=== PATIENT | female | born 1985 | race Caucasian/White ===

== ENCOUNTER 2018-03-04 16:29 | Emergency (ER) | payer MEDICAID ==
[~2018-03-04 16:29] MED LIST: HYDR-569 PO; ONDA4TAB12 PO
[2018-03-04 16:34] VITALS: BP 97/70
== END 2018-03-04 17:34 | disposition home or self-care (01) ==
LOC: ER 16:30
DX: F10.20 Alcohol dependence, uncomplicated (principal); J45.909 Unspecified asthma, uncomplicated; F15.90 Other stimulant use, unspecified, uncomplicated; Z88.0 Allergy status to penicillin; Z88.5 Allergy status to narcotic agent; Z79.899 Other long term (current) drug therapy
CPT/HCPCS: 99281

== ENCOUNTER 2018-04-19 17:08 | Inpatient (IN) | payer MEDICAID ==
[~2018-04-19] VITALS: Ht 160 cm; Wt 45.1 kg
[~2018-04-19 17:08] MED LIST changes: +CEPH500C5 PO; +CLIN150C8 PO; +IBUPROFEN PO; +MILK87.5; +SERT25TA5; +STOMACH PILL; +VIT A
[2018-04-19] MEDS ORDERED: normal saline 1000ML IV soln IV ONE (18:50)
[2018-04-19] MEDS ORDERED: vancomycin/NS 1 GM ADD-VANTAGE 250 ML IV ONE (18:50)
[2018-04-19] MEDS ORDERED: gentamicin 40 MG/1 ML inj IV SCH (18:50)
[2018-04-19] MEDS ORDERED: GENTAMICIN IV ONE (19:00)
[2018-04-19] MEDS ORDERED: NORMAL SALINE IV ONE (19:00)
[2018-04-19 19:14] LABS: BASOPHILS % (AUTO) 0.4 % (0-1); EOSINOPHILS # (AUTO) 0.2 X10'3 (0-0.9); EOSINOPHILS % (AUTO) 2.1 % (0-6); HEMATOCRIT 33.6 % (35.0-45.0); HEMOGLOBIN 11.4 g/dl (12.0-16.0); LYMPHOCYTES # (AUTO) 2.5 X10'3 (1.1-4.8); LYMPHOCYTES % (AUTO) 28.9 % (21-51); MEAN CORPUSCULAR HEMOGLOBIN 32.2 PG (27.0-31.0); MEAN CORPUSCULAR VOLUME 94.6 FL (78-98); MONOCYTES # (AUTO) 0.6 X10'3 (0-0.9); MONOCYTES % (AUTO) 7.4 % (2-12); NEUTROPHILS # (AUTO) 5.2 X10'3 (1.8-7.7); NEUTROPHILS % (AUTO) 61.2 % (42-75); PLATELET COUNT 289 X10'3 (140-440); RED BLOOD COUNT 3.55 X10'6 (4.20-5.60); RED CELL DISTRIBUTION WIDTH 14.9 % (11.5-14.5); WHITE BLOOD COUNT 8.5 X10'3 (4.5-11.0)
[2018-04-19 19:22] LABS: URINE HCG NEGATIVE (NEG)
[2018-04-19 19:25] LABS: PARTIAL THROMBOPLASTIN TIME 29 SECONDS (22-32)
[2018-04-19] MEDS ORDERED: ketorolac trometh. 30mg/ml inj. IV ONE (19:25)
[2018-04-19] MEDS ORDERED: HYDROcodone/acetaminophen 5mg/325mg tablet PO ONE (19:25)
[2018-04-19 19:30] LABS: CLARITY,URINE SLIGHTLY CLOUDY (Clear); COLOR,URINE YELLOW (Yellow); GLUCOSE, URINE NEGATIVE (Neg); KETONES,URINE NEGATIVE (Neg); LEUKOCYTE ESTERASE ,URINE NEGATIVE (Neg); NITRITES, URINE NEGATIVE (Neg); OCCULT BLOOD,URINE LARGE (Neg); PROTEIN,URINE TRACE mg/dl (Neg); UA COLLECTION TYPE CLN CATCH MIDSTREAM; UROBILINOGEN,URINE 0.2 E.U/dL (0.2-1.0)
[2018-04-19 19:30] LABS: ALANINE AMINOTRANSFERASE 19 U/L (12-78); ALBUMIN/GLOBULIN RATIO 0.7 (1.1-1.5); ALKALINE PHOSPHATASE 157 IU/L (46-116); ANION GAP 13 (8-16); ASPARTATE AMINO TRANSFERASE 22 U/L (10-37); BILIRUBIN,TOTAL 0.2 MG/DL (0.1-1.0); BLOOD UREA NITROGEN 15 MG/DL (7-18); BUN/CREATININE RATIO 27.8 (6.6-38.0); CALCIUM 8.6 MG/DL (8.5-10.1); CHLORIDE 103 MMOL/L (99-107); CREATININE 0.54 MG/DL (0.40-0.90); GLUCOSE 210 MG/DL (70-104); MAGNESIUM 1.9 MG/DL (1.5-2.4); POTASSIUM 3.1 MMOL/L (3.5-5.1); SODIUM 140 MMOL/L (135-145); TOTAL CARBON DIOXIDE 24.1 MMOL/L (24-32); TOTAL PROTEIN 7.2 G/DL (6.4-8.2); eGFR > 90 ML/MIN
[2018-04-19] MEDS ORDERED: iohexol 300mg/ml 100ml inj. ONE (19:33)
[2018-04-19] MEDS ORDERED: potassium Cl 20 mEq SR tablet PO STA (19:41)
[2018-04-19 19:44] LABS: BACTERIA,URINE FEW /HPF (Neg); MUCUS STRANDS MANY /LPF (Neg); RBC,URINE 50-100 /HPF (0-2); SQUAMOUS EPITHELIAL CELL,UR MODERATE /LPF (FEW); WBC,URINE 0-4 /HPF (0-4)
[2018-04-19] MEDS ORDERED: ondansetron/PF 4mg/2ml inj IV ONE (19:45)
[2018-04-19] MEDS ORDERED: magnesium 1gm/100ml D5W IVPB 100 ML IV PRN (20:00)
[2018-04-19] MEDS ORDERED: mag hydrox/Alum hydrox/simeth 30ml oral suspension PO PRN (20:00)
[2018-04-19] MEDS ORDERED: magnesium 4gm in 100ml NS 100 ML IV PRN (20:00)
[2018-04-19] MEDS ORDERED: haloperidol 5mg tablet PO PRN (20:00)
[2018-04-19] MEDS ORDERED: haloperidol lactate 5mg/ml inj IM PRN (20:00)
[2018-04-19] MEDS ORDERED: potassium Cl 20 mEq SR tablet PO PRN ×2 (20:00)
[2018-04-19] MEDS ORDERED: magnesium hydroxide 30ml (MOM) UD suspension PO PRN (20:00)
[2018-04-19] MEDS ORDERED: magnesium Cl slow-release 64mg tablet PO PRN (20:00)
[2018-04-19] MEDS ORDERED: potassium Cl 40MEQ/NS 500ml 500 ML IV PRN ×2 (20:00)
[2018-04-19] MEDS ORDERED: dextrose 50%-water 50ml dispensing syringe IV PRN (20:00)
[2018-04-19] MEDS ORDERED: vancomycin/NS 1 GM ADD-VANTAGE 250 ML IV SCH (20:00)
[2018-04-19] MEDS ORDERED: acetaminophen 325mg tablet PO PRN ×2 (20:00)
[2018-04-19] MEDS ORDERED: ondansetron/PF 4mg/2ml inj IV PRN (20:00)
[2018-04-19] MEDS ORDERED: LORazepam 2 mg/ml vial IV PRN (20:00)
[2018-04-19] MEDS ORDERED: HYDROcodone/acetaminophen 5mg/325mg tablet PO PRN (20:00)
[2018-04-19] MEDS: LORazepam 1 MG tablet PO PRN (20:32)
[2018-04-19] MEDS: gabapentin 300mg capsule PO SCH (20:32)
[2018-04-19] MEDS: normal saline 1000ml 1,000 ML IV SCH (20:33)
[2018-04-19] MEDS: enoxaparin 40mg/0.4ml syringe SUBCUT SCH (20:33)
[2018-04-19 20:47] LABS: URINE AMPHETAMINE SCREEN POSITIVE (Neg); URINE BARBITUATE SCREEN NEGATIVE (Neg); URINE BENZODIAZEPINES SCREEN NEGATIVE (Neg); URINE CANNABINOID SCREEN POSITIVE (Neg); URINE COCAINE SCREEN NEGATIVE (Neg); URINE METHADONE SCREEN NEGATIVE (Neg); URINE OPIATE SCREEN NEGATIVE (Neg); URINE PHENCYCLIDINE SCREEN NEGATIVE (Neg)
[2018-04-19] MEDS ORDERED: temazepam 15mg capsule PO PRN (21:00)
[2018-04-19] MEDS ORDERED: SERT25TA PO (21:23)
[2018-04-19 23:10] VITALS: BP 110/87
[2018-04-19] MEDS: cefepime 2g/NS 100ml ADVANTAGE 100 ML IV SCH (23:24)
[2018-04-20] MEDS ORDERED: cefepime 2gm inj IV SCH
[2018-04-20] MEDS: nicotine 14mg patch - 24hr TD SCH ×2 (03:24→07:31)
[2018-04-20 05:14] LABS: BASOPHILS % (AUTO) 0.5 % (0-1); EOSINOPHILS # (AUTO) 0.2 X10'3 (0-0.9); EOSINOPHILS % (AUTO) 2.5 % (0-6); HEMATOCRIT 30.9 % (35.0-45.0); HEMOGLOBIN 10.2 g/dl (12.0-16.0); LYMPHOCYTES # (AUTO) 2.2 X10'3 (1.1-4.8); LYMPHOCYTES % (AUTO) 30.9 % (21-51); MEAN CORPUSCULAR HEMOGLOBIN 31.8 PG (27.0-31.0); MEAN CORPUSCULAR HGB CONC 33.1 % (33.0-36.5); MEAN CORPUSCULAR VOLUME 96.1 FL (78-98); MONOCYTES # (AUTO) 0.5 X10'3 (0-0.9); MONOCYTES % (AUTO) 7.7 % (2-12); NEUTROPHILS # (AUTO) 4.2 X10'3 (1.8-7.7); NEUTROPHILS % (AUTO) 58.4 % (42-75); PLATELET COUNT 250 X10'3 (140-440); RED BLOOD COUNT 3.21 X10'6 (4.20-5.60); RED CELL DISTRIBUTION WIDTH 14.6 % (11.5-14.5); WHITE BLOOD COUNT 7.1 X10'3 (4.5-11.0)
[2018-04-20 05:41] LABS: ALBUMIN 2.4 G/DL (3.4-5.0); ANION GAP 10 (8-16); BLOOD UREA NITROGEN 12 MG/DL (7-18); BUN/CREATININE RATIO 25.5 (6.6-38.0); CALCIUM 7.9 MG/DL (8.5-10.1); CHLORIDE 106 MMOL/L (99-107); CREATININE 0.47 MG/DL (0.40-0.90); GLUCOSE 120 MG/DL (70-104); MAGNESIUM 1.6 MG/DL (1.5-2.4); POTASSIUM 3.4 MMOL/L (3.5-5.1); SODIUM 139 MMOL/L (135-145); TOTAL CARBON DIOXIDE 23.3 MMOL/L (24-32); eGFR > 90 ML/MIN
[2018-04-20] MEDS: normal saline 1000ml 1,000 ML IV SCH ×3 (06:22→19:29)
[2018-04-20] MEDS: HYDROcodone/acetaminophen 10/325mg tab PO PRN ×4 (06:22→23:48)
[2018-04-20] MEDS: cefepime 2g/NS 100ml ADVANTAGE 100 ML IV SCH ×2 (07:28→14:52)
[2018-04-20] MEDS: gabapentin 300mg capsule PO SCH ×3 (07:29→21:21)
[2018-04-20] MEDS: enoxaparin 40mg/0.4ml syringe SUBCUT SCH (07:30)
[2018-04-20] MEDS: thiamine 100mg tablet PO SCH (07:30)
[2018-04-20] MEDS: folic acid 1mg tablet PO SCH (07:30)
[2018-04-20] MEDS: VANCOMYCIN 750MG IV in NS 250 ML IV SCH ×3 (07:31→23:56)
[2018-04-20 08:00] VITALS: BP 142/107
[2018-04-20] MEDS ORDERED: VANCOMYCIN 750MG IV in NS 250 ML IV SCH (08:00)
[2018-04-20] MEDS ORDERED: nicotine 14mg patch - 24hr TD SCH (08:00)
[2018-04-20] MEDS ORDERED: K and/or MAG REPLACEMENT MC SCH (08:00)
[2018-04-20] MEDS ORDERED: OMEP20TA23 PO (11:10)
[2018-04-20 12:00] VITALS: BP 146/106
[2018-04-20] MEDS: LORazepam 1 MG tablet PO PRN ×3 (14:52→23:48)
[2018-04-20] MEDS ORDERED: ipratropium/albuterol 3ml nebule NEB PRN (16:15)
[2018-04-20 18:30] VITALS: BP 183/116
[2018-04-20] MEDS: lactobacillus rhamnosus 10,000 MMU CELLS/CAPSULE PO SCH (19:19)
[2018-04-21] VITALS: BP 157/109
[2018-04-21] MEDS: cefepime 2g/NS 100ml ADVANTAGE 100 ML IV SCH ×2 (01:41→08:21)
[2018-04-21] MEDS: normal saline 1000ml 1,000 ML IV SCH ×2 (02:00→03:26)
[2018-04-21] MEDS: HYDROcodone/acetaminophen 10/325mg tab PO PRN (03:25)
[2018-04-21] MEDS: LORazepam 1 MG tablet PO PRN ×2 (03:40→08:22)
[2018-04-21] MEDS ORDERED: VANCOMYCIN LEVEL IV ONE (06:30)
[2018-04-21 07:00] VITALS: BP 143/98
[2018-04-21] MEDS: VANCOMYCIN 750MG IV in NS 250 ML IV SCH (08:16)
[2018-04-21] MEDS: thiamine 100mg tablet PO SCH (08:22)
[2018-04-21] MEDS: folic acid 1mg tablet PO SCH (08:22)
[2018-04-21] MEDS: enoxaparin 40mg/0.4ml syringe SUBCUT SCH (08:22)
[2018-04-21] MEDS: gabapentin 300mg capsule PO SCH (08:22)
[2018-04-21] MEDS: lactobacillus rhamnosus 10,000 MMU CELLS/CAPSULE PO SCH (08:22)
[2018-04-21] MEDS: nicotine 14mg patch - 24hr TD SCH (08:23)
[2018-04-21 08:37] LABS: BASOPHILS % (AUTO) 0.6 % (0-1); EOSINOPHILS # (AUTO) 0.2 X10'3 (0-0.9); EOSINOPHILS % (AUTO) 2.6 % (0-6); HEMATOCRIT 32.4 % (35.0-45.0); HEMOGLOBIN 11.1 g/dl (12.0-16.0); LYMPHOCYTES # (AUTO) 2.3 X10'3 (1.1-4.8); LYMPHOCYTES % (AUTO) 31.8 % (21-51); MEAN CORPUSCULAR HEMOGLOBIN 32.5 PG (27.0-31.0); MEAN CORPUSCULAR HGB CONC 34.2 % (33.0-36.5); MEAN CORPUSCULAR VOLUME 95.2 FL (78-98); MEAN PLATELET VOLUME 8.1 FL (7.4-10.4); MONOCYTES # (AUTO) 0.4 X10'3 (0-0.9); MONOCYTES % (AUTO) 5.4 % (2-12); NEUTROPHILS # (AUTO) 4.3 X10'3 (1.8-7.7); NEUTROPHILS % (AUTO) 59.6 % (42-75); PLATELET COUNT 231 X10'3 (140-440); RED BLOOD COUNT 3.41 X10'6 (4.20-5.60); RED CELL DISTRIBUTION WIDTH 14.6 % (11.5-14.5); WHITE BLOOD COUNT 7.2 X10'3 (4.5-11.0)
[2018-04-21 08:42] LABS: ALBUMIN 2.5 G/DL (3.4-5.0); ANION GAP 5 (8-16); BLOOD UREA NITROGEN 6 MG/DL (7-18); BUN/CREATININE RATIO 14.3 (6.6-38.0); CALCIUM 8.1 MG/DL (8.5-10.1); CHLORIDE 103 MMOL/L (99-107); CREATININE 0.42 MG/DL (0.40-0.90); GLUCOSE 136 MG/DL (70-104); MAGNESIUM 1.5 MG/DL (1.5-2.4); SODIUM 136 MMOL/L (135-145); VANCOMYCIN,TROUGH 7.8 UG/ML (6.0-14.0); eGFR > 90 ML/MIN
[2018-04-21 08:55] LABS: POTASSIUM 3.6 MMOL/L (3.5-5.1)
[2018-04-21] MEDS ORDERED: CLIN-5 PO (10:46)
[2018-04-21] MEDS ORDERED: HYDR-569 PO (10:46)
[2018-04-21 11:00] VITALS: BP 135/96
[2018-04-21] MEDS ORDERED: vancomycin inj 1,250 MG in normal saline 250ml IV soln 250 ML IV SCH (15:00)
[2018-04-22] MEDS ORDERED: VANCOMYCIN LEVEL IV ONE (14:30)
== END 2018-04-21 13:55 | disposition home or self-care (01) | DRG 383 ==
LOC: ER 17:10 → ED HOLD 20:00 → SUR 3N 22:56
PROVIDERS: ADMIT Hospitalist; ATTEND Internal Medicine
DX: L03.116 Cellulitis of left lower limb (principal); K86.1 Other chronic pancreatitis; F32.9 Major depressive disorder, single episode, unspecified; F10.10 Alcohol abuse, uncomplicated; F12.90 Cannabis use, unspecified, uncomplicated; F15.10 Other stimulant abuse, uncomplicated; J44.9 Chronic obstructive pulmonary disease, unspecified; Z82.0 Family history of epilepsy and other diseases of the nervous system; Z98.891 History of uterine scar from previous surgery; Z82.5 Family history of asthma and other chronic lower respiratory diseases; Z88.0 Allergy status to penicillin; Z88.5 Allergy status to narcotic agent
CPT/HCPCS: 36415; 71045; 73701; 80048; 80053; 80202; 80305; 81001; 81025; 82948; 83605; 83735; 84145; 85025; 85610; 85730; 87040; 87070; 93005; 94760; 96365; 96366; 96368; 99285; A6257; J0692; J1580; J1650; J1885; J2060; J2405; J3370; J7030; Q9967

== ENCOUNTER 2018-04-23 12:57 | Emergency (ER) | payer MEDICAID ==
[~2018-04-23] VITALS: Ht 162.6 cm; Wt 50.0 kg
[~2018-04-23 12:57] MED LIST changes: -CEPH500C5 PO; +CLIN-5 PO; -CLIN150C8 PO; +OMEP20TA23 PO; -STOMACH PILL; -VIT A
[2018-04-23 13:37] LABS: BASOPHILS # (AUTO) 0.1 X10'3 (0-0.2); BASOPHILS % (AUTO) 0.6 % (0-1); EOSINOPHILS # (AUTO) 0.1 X10'3 (0-0.9); EOSINOPHILS % (AUTO) 1.4 % (0-6); HEMATOCRIT 38.7 % (35.0-45.0); HEMOGLOBIN 13.3 g/dl (12.0-16.0); LYMPHOCYTES # (AUTO) 2.2 X10'3 (1.1-4.8); LYMPHOCYTES % (AUTO) 22.2 % (21-51); MEAN CORPUSCULAR HEMOGLOBIN 32.4 PG (27.0-31.0); MEAN CORPUSCULAR HGB CONC 34.3 % (33.0-36.5); MEAN CORPUSCULAR VOLUME 94.5 FL (78-98); MEAN PLATELET VOLUME 8.1 FL (7.4-10.4); MONOCYTES # (AUTO) 0.4 X10'3 (0-0.9); MONOCYTES % (AUTO) 3.7 % (2-12); NEUTROPHILS % (AUTO) 72.1 % (42-75); PLATELET COUNT 322 X10'3 (140-440); RED CELL DISTRIBUTION WIDTH 14.8 % (11.5-14.5); WHITE BLOOD COUNT 9.7 X10'3 (4.5-11.0)
[2018-04-23] MEDS ORDERED: diphenhydrAMINE 50 mg/ml inj IV ONE (13:40)
[2018-04-23] MEDS ORDERED: metoclopramide 5 mg/ml inj IV ONE (13:40)
[2018-04-23] MEDS ORDERED: normal saline 1000ML IV soln IVB ONE ×2 (13:40)
[2018-04-23] MEDS ORDERED: LORazepam 2 mg/ml vial IV ONE (13:40)
[2018-04-23 14:07] LABS: URINE HCG NEGATIVE (NEG)
[2018-04-23 14:08] LABS: CLARITY,URINE CLOUDY (Clear); COLOR,URINE YELLOW (Yellow); GLUCOSE, URINE NEGATIVE (Neg); KETONES,URINE NEGATIVE (Neg); LEUKOCYTE ESTERASE ,URINE NEGATIVE (Neg); NITRITES, URINE NEGATIVE (Neg); OCCULT BLOOD,URINE NEGATIVE (Neg); PROTEIN,URINE NEGATIVE (Neg); UROBILINOGEN,URINE 0.2 E.U/dL (0.2-1.0)
[2018-04-23 14:10] LABS: UA COLLECTION TYPE CLN CATCH MIDSTREAM
[2018-04-23 14:13] LABS: MUCUS STRANDS MODERATE /LPF (Neg); SQUAMOUS EPITHELIAL CELL,UR MODERATE /LPF (FEW)
[2018-04-23 14:14] LABS: PROTHROMBIN TIME 10.8 SECONDS (9.0-12.0)
[2018-04-23 14:14] LABS: BACTERIA,URINE 1+ /HPF (Neg); RBC,URINE 0-2 /HPF (0-2); WBC,URINE 0-4 /HPF (0-4)
[2018-04-23 14:19] LABS: ALANINE AMINOTRANSFERASE 31 U/L (12-78); ALBUMIN 3.3 G/DL (3.4-5.0); ALBUMIN/GLOBULIN RATIO 0.7 (1.1-1.5); ALKALINE PHOSPHATASE 164 IU/L (46-116); AMYLASE 160 U/L (25-115); ANION GAP 6 (8-16); ASPARTATE AMINO TRANSFERASE 24 U/L (10-37); BILIRUBIN,TOTAL 0.3 MG/DL (0.1-1.0); BLOOD UREA NITROGEN 7 MG/DL (7-18); BUN/CREATININE RATIO 12.7 (6.6-38.0); CALCIUM 9.3 MG/DL (8.5-10.1); CHLORIDE 94 MMOL/L (99-107); CREATININE 0.55 MG/DL (0.40-0.90); GLUCOSE 115 MG/DL (70-104); LIPASE 375 U/L (73-393); POTASSIUM 3.6 MMOL/L (3.5-5.1); SODIUM 135 MMOL/L (135-145); TOTAL CARBON DIOXIDE 34.8 MMOL/L (24-32); TOTAL PROTEIN 7.8 G/DL (6.4-8.2); eGFR > 90 ML/MIN
[2018-04-23] MEDS ORDERED: ONDA4TAB12 PO (15:05)
[2018-04-23 15:42] VITALS: BP 153/112
== END 2018-04-23 15:43 | disposition home or self-care (01) ==
LOC: ER 12:57
DX: R10.13 Epigastric pain (principal); E86.0 Dehydration; J45.909 Unspecified asthma, uncomplicated; K85.90 Acute pancreatitis without necrosis or infection, unspecified; R50.9 Fever, unspecified; F12.90 Cannabis use, unspecified, uncomplicated; F15.90 Other stimulant use, unspecified, uncomplicated; F17.210 Nicotine dependence, cigarettes, uncomplicated; Z98.51 Tubal ligation status; Z98.890 Other specified postprocedural states; Z88.0 Allergy status to penicillin; Z88.5 Allergy status to narcotic agent; Z79.2 Long term (current) use of antibiotics; Z79.899 Other long term (current) drug therapy
CPT/HCPCS: 36415; 80053; 81001; 81025; 82150; 83690; 85025; 85610; 96361; 96374; 96375; 99284; J1200; J2060; J2765; J7030

== ENCOUNTER 2018-05-07 02:27 | Emergency (ER) | payer MEDICAID ==
[~2018-05-07] VITALS: Ht 160 cm; Wt 37.0 kg
[2018-05-07 02:31] VITALS: BP 126/88
== END 2018-05-07 02:50 | disposition left against medical advice (07) ==
LOC: ER 02:28
DX: L02.31 Cutaneous abscess of buttock (principal); Z53.21 Procedure and treatment not carried out due to patient leaving prior to being seen by health care provider

== ENCOUNTER 2018-07-09 06:50 | Day surgery (SDC) | payer MEDICAID ==
[~2018-07-09] VITALS: Ht 160 cm; Wt 48.8 kg
[2018-07-09] VITALS (14 sets, daily range): BP systolic 126–144; BP diastolic 82–99
[~2018-07-09 06:50] MED LIST changes: +HYDR-4383 PO; -HYDR-569 PO
[2018-07-09] MEDS ORDERED: oxyCODONE IR 5mg (immed. release) tablet PO PRN (07:20)
[2018-07-09] MEDS ORDERED: normal saline 1000ml 1,000 ML IV PRN (07:20)
[2018-07-09 07:54] LABS: BASOPHILS % (AUTO) 0.4 % (0-1); EOSINOPHILS # (AUTO) 0.1 X10'3 (0-0.9); EOSINOPHILS % (AUTO) 1.7 % (0-6); LYMPHOCYTES % (AUTO) 23.8 % (21-51); MEAN CORPUSCULAR HEMOGLOBIN 29.3 PG (27.0-31.0); MEAN CORPUSCULAR HGB CONC 33.4 % (33.0-36.5); MEAN CORPUSCULAR VOLUME 87.8 FL (78-98); MEAN PLATELET VOLUME 8.4 FL (7.4-10.4); MONOCYTES # (AUTO) 0.5 X10'3 (0-0.9); MONOCYTES % (AUTO) 6.2 % (2-12); NEUTROPHILS # (AUTO) 5.7 X10'3 (1.8-7.7); NEUTROPHILS % (AUTO) 67.9 % (42-75); PRE OP HEMATOCRIT 32.5 % (35.0-45.0); PRE OP PLATELET COUNT 204 X10'3 (140-440); RED BLOOD COUNT 3.71 X10'6 (4.20-5.60)
[2018-07-09] MEDS ORDERED: OMEP20TA23 PO (07:54)
[2018-07-09] MEDS ORDERED: ONDA4TAB9 SL (07:54)
[2018-07-09] MEDS ORDERED: THI100T PO (07:54)
[2018-07-09] MEDS ORDERED: FOLI1TAB16 PO (07:54)
[2018-07-09] MEDS ORDERED: PANC1CAP (07:54)
[2018-07-09 08:00] LABS: PRE OP HEMOGLOBIN 10.9 g/dL (12.0-16.0)
[2018-07-09 08:03] LABS: ANION GAP 11 (8-16); BLOOD UREA NITROGEN 9 MG/DL (7-18); BUN/CREATININE RATIO 23.1 (6.6-38.0); CALCIUM 8.1 MG/DL (8.5-10.1); CHLORIDE 99 MMOL/L (99-107); CREATININE 0.39 MG/DL (0.40-0.90); GLUCOSE 124 MG/DL (70-104); POTASSIUM 3.3 MMOL/L (3.5-5.1); SODIUM 136 MMOL/L (135-145); TOTAL CARBON DIOXIDE 26.1 MMOL/L (24-32); eGFR > 90 ML/MIN
[2018-07-09] MEDS ORDERED: fentaNYL/PF 50MCG/1 ML 2ML syringe ONE (09:14)
[2018-07-09] MEDS ORDERED: LIDOcaine 1%/PF 5ML 10 MG/ML VIAL ONE (09:14)
[2018-07-09] MEDS ORDERED: HYDROcodone/acetaminophen 5mg/325mg tablet PO PRN (10:50)
== END 2018-07-09 12:30 | disposition home or self-care (01) ==
LOC: SSTAY O 06:50
PROVIDERS: ATTEND Radiology Vascular & Interventional Radiology
DX: K74.0 Hepatic fibrosis (principal); K73.9 Chronic hepatitis, unspecified; K75.9 Inflammatory liver disease, unspecified; J45.909 Unspecified asthma, uncomplicated; K86.1 Other chronic pancreatitis; F17.210 Nicotine dependence, cigarettes, uncomplicated; Z88.0 Allergy status to penicillin; Z88.6 Allergy status to analgesic agent; Z79.899 Other long term (current) drug therapy; Z98.51 Tubal ligation status; Z98.890 Other specified postprocedural states
CPT/HCPCS: 36415; 47000; 77012; 80048; 85025; 85610; 87070; J2001; J3010; J7030

== ENCOUNTER 2018-10-24 23:04 | Emergency (ER) | payer MEDICAID ==
[~2018-10-24] VITALS: Ht 160 cm; Wt 48.5 kg
[~2018-10-24 23:04] MED LIST changes: -CLIN-5 PO; +FOLI1TAB16 PO; -HYDR-4383 PO; -IBUPROFEN PO; -MILK87.5; -ONDA4TAB12 PO; +ONDA4TAB9 SL; +PANC1CAP; +THI100T PO
[2018-10-24 23:13] VITALS: BP 139/93
[2018-10-25] MEDS ORDERED: sulfamethoxazole/trimethoprim DS (800/160mg) tablet PO ONE (00:35)
[2018-10-25 01:07] LABS: URINE HCG NEGATIVE (NEG)
[2018-10-25] MEDS ORDERED: SULF1TAB49 PO (02:03)
[2018-10-25] MEDS ORDERED: HYDROcodone/acetaminophen 5mg/325mg tablet PO ONE (02:05)
== END 2018-10-25 04:02 | disposition home or self-care (01) ==
LOC: ER 23:05
DX: K13.0 Diseases of lips (principal); R19.00 Intra-abdominal and pelvic swelling, mass and lump, unspecified site; J45.909 Unspecified asthma, uncomplicated; F12.90 Cannabis use, unspecified, uncomplicated; F15.90 Other stimulant use, unspecified, uncomplicated; Z98.51 Tubal ligation status; Z98.890 Other specified postprocedural states; Z88.0 Allergy status to penicillin; Z79.2 Long term (current) use of antibiotics; Z88.5 Allergy status to narcotic agent; Z79.899 Other long term (current) drug therapy
CPT/HCPCS: 74176; 81025; 99284

== ENCOUNTER 2019-01-30 13:24 | Emergency (ER) | payer MEDICAID ==
[~2019-01-30] VITALS: Ht 160 cm; Wt 43.8 kg
[2019-01-30 14:58] LABS: CLARITY,URINE CLEAR (Clear); COLOR,URINE STRAW (Yellow); GLUCOSE, URINE >=1000 mg/dl (Neg); KETONES,URINE NEGATIVE (Neg); LEUKOCYTE ESTERASE ,URINE NEGATIVE (Neg); NITRITES, URINE NEGATIVE (Neg); OCCULT BLOOD,URINE MODERATE (Neg); PH,URINE 5.5 (4.8-8.0); PROTEIN,URINE NEGATIVE (Neg); UROBILINOGEN,URINE 0.2 E.U/dL (0.2-1.0)
[2019-01-30 15:00] LABS: BASOPHILS % (AUTO) 0.4 % (0-1); EOSINOPHILS % (AUTO) 0.2 % (0-6); LYMPHOCYTES % (AUTO) 25.6 % (21-51); MEAN CORPUSCULAR HGB CONC 33.2 g/dL (33.0-36.5); MEAN CORPUSCULAR VOLUME 96.4 FL (78-98); MONOCYTES # (AUTO) 0.5 X10'3 (0-0.9); MONOCYTES % (AUTO) 6.4 % (2-12); NEUTROPHILS # (AUTO) 5.2 X10'3 (1.8-7.7); NEUTROPHILS % (AUTO) 67.4 % (42-75); PLATELET COUNT 275 X10'3 (140-440); RED BLOOD COUNT 4.05 X10'6 (4.20-5.60); RED CELL DISTRIBUTION WIDTH 14.5 % (11.5-14.5); WHITE BLOOD COUNT 7.7 X10'3 (4.5-11.0)
[2019-01-30 15:01] LABS: UA COLLECTION TYPE CLN CATCH MIDSTREAM
[2019-01-30 15:10] LABS: BACTERIA,URINE NONE SEEN /HPF (Neg); SQUAMOUS EPITHELIAL CELL,UR FEW /LPF (FEW); WBC,URINE NONE SEEN /HPF (0-4)
[2019-01-30] MEDS ORDERED: normal saline 1000ML IV soln IVB ONE ×2 (15:10→15:35)
[2019-01-30 15:18] LABS: ANION GAP 11 (8-16); BLOOD UREA NITROGEN 6 MG/DL (7-18); BUN/CREATININE RATIO 8.3 (6.6-38.0); CHLORIDE 93 MMOL/L (99-107); CREATININE 0.72 MG/DL (0.40-0.90); POTASSIUM 3.6 MMOL/L (3.5-5.1); SODIUM 128 MMOL/L (135-145); TOTAL CARBON DIOXIDE 24.4 MMOL/L (24-32)
[2019-01-30 15:19] LABS: ALANINE AMINOTRANSFERASE 97 U/L (12-78); ALBUMIN 2.9 G/DL (3.4-5.0); ALBUMIN/GLOBULIN RATIO 0.8 (1.1-1.5); ALKALINE PHOSPHATASE 189 IU/L (46-116); AMYLASE 44 U/L (25-115); ASPARTATE AMINO TRANSFERASE 93 U/L (10-37); BILIRUBIN,TOTAL 0.3 MG/DL (0.1-1.0); CALCIUM 8.4 MG/DL (8.5-10.1); LIPASE 98 U/L (73-393); TOTAL PROTEIN 6.7 G/DL (6.4-8.2); eGFR > 90 ML/MIN
[2019-01-30 15:27] LABS: GLUCOSE 603 MG/DL (70-104)
[2019-01-30] MEDS ORDERED: insulin regular, human 10 units/0.1 ml syringe IV ONE (15:35)
[2019-01-30 15:46] LABS: ETHANOL 0.135 GM/DL (0.0-0.010)
[2019-01-30] MEDS ORDERED: pantoprazole 40 MG vial IV ONE (15:55)
[2019-01-30] MEDS ORDERED: proCHLORperazine 10 MG/2 ml inj IV ONE (15:55)
[2019-01-30] MEDS ORDERED: ketorolac tromethamine 15mg/ml inj. IV ONE (15:55)
[2019-01-30] MEDS ORDERED: diphenhydrAMINE 50 mg/ml inj IV ONE (15:55)
[2019-01-30] MEDS ORDERED: ONDA4TAB6 PO (17:35)
[2019-01-30 18:15] VITALS: BP 136/69
== END 2019-01-30 18:18 | disposition home or self-care (01) ==
LOC: ER 13:25
DX: F10.129 Alcohol abuse with intoxication, unspecified (principal); G89.29 Other chronic pain; R10.12 Left upper quadrant pain; F15.10 Other stimulant abuse, uncomplicated; J45.909 Unspecified asthma, uncomplicated; F12.90 Cannabis use, unspecified, uncomplicated; Z88.0 Allergy status to penicillin; Z88.5 Allergy status to narcotic agent; Z79.899 Other long term (current) drug therapy; Y90.9 Presence of alcohol in blood, level not specified
CPT/HCPCS: 36415; 80053; 80320; 81001; 82150; 82948; 83690; 85025; 85610; 93005; 96361; 96374; 96375; 99284; C9113; J0780; J1200; J1815; J1885; J7030

== ENCOUNTER 2019-02-17 15:02 | Emergency (ER) | payer MEDICAID ==
[~2019-02-17] VITALS: Ht 160 cm; Wt 38.6 kg
[~2019-02-17 15:02] MED LIST changes: +ESOMEPRAZOLE 40 MG VIAL IV ONE; +ONDA4TAB6 PO
--- NOTE | 2019-02-17 15:15 | NUR ---
[id number] ON ADMISSION
[2019-02-17] MEDS ORDERED: metoclopramide 5 mg/ml inj IV ONE (15:30)
[2019-02-17] MEDS ORDERED: normal saline 1000ML IV soln IVB ONE ×2 (15:30→21:10)
[2019-02-17] MEDS ORDERED: diphenhydrAMINE 50 mg/ml inj IV ONE (15:30)
[2019-02-17 15:58] LABS: BASOPHILS % (AUTO) 0.2 % (0-1); EOSINOPHILS % (AUTO) 0.2 % (0-6); HEMATOCRIT 34.2 % (35.0-45.0); HEMOGLOBIN 11.8 g/dl (12.0-16.0); LYMPHOCYTES % (AUTO) 15.7 % (21-51); MEAN CORPUSCULAR HEMOGLOBIN 32.7 PG (27.0-31.0); MEAN CORPUSCULAR HGB CONC 34.4 g/dL (33.0-36.5); MEAN CORPUSCULAR VOLUME 94.9 FL (78-98); MEAN PLATELET VOLUME 7.7 FL (7.4-10.4); MONOCYTES # (AUTO) 0.6 X10'3 (0-0.9); MONOCYTES % (AUTO) 4.9 % (2-12); NEUTROPHILS # (AUTO) 10.1 X10'3 (1.8-7.7); PLATELET COUNT 342 X10'3 (140-440); RED BLOOD COUNT 3.61 X10'6 (4.20-5.60); RED CELL DISTRIBUTION WIDTH 13.7 % (11.5-14.5); WHITE BLOOD COUNT 12.8 X10'3 (4.5-11.0)
[2019-02-17 16:05] LABS: ALANINE AMINOTRANSFERASE 28 U/L (12-78); ALBUMIN 2.7 G/DL (3.4-5.0); ALBUMIN/GLOBULIN RATIO 0.6 (1.1-1.5); ALKALINE PHOSPHATASE 150 IU/L (46-116); ANION GAP 19 (8-16); ASPARTATE AMINO TRANSFERASE 26 U/L (10-37); BILIRUBIN,TOTAL 0.3 MG/DL (0.1-1.0); BLOOD UREA NITROGEN 4 MG/DL (7-18); BUN/CREATININE RATIO 9.3 (6.6-38.0); CALCIUM 8.6 MG/DL (8.5-10.1); CHLORIDE 94 MMOL/L (99-107); CREATININE 0.43 MG/DL (0.40-0.90); ETHANOL 0.135 GM/DL (0.0-0.010); GLUCOSE 335 MG/DL (70-104); LIPASE 104 U/L (73-393); SODIUM 132 MMOL/L (135-145); TOTAL CARBON DIOXIDE 19.1 MMOL/L (24-32); TOTAL PROTEIN 7.2 G/DL (6.4-8.2); eGFR > 90 ML/MIN
[2019-02-17] MEDS ORDERED: magnesium 2GM in 50ml NS 50 ML IV ONE (16:10)
[2019-02-17] MEDS ORDERED: potassium Cl 20 mEq SR tablet PO ONE (16:10)
[2019-02-17] MEDS ORDERED: potassium Cl 10 mEq/100mL bag IV ONE ×2 (16:10→16:40)
[2019-02-17] MEDS ORDERED: normal saline 1000ml 1,000 ML IV ONE (16:30)
[2019-02-17] MEDS ORDERED: thiamine 100mg/ml 2ml inj. IV ONE (16:40)
[2019-02-17] MEDS: ondansetron/PF 4mg/2ml inj IV ONE ×2 (16:40→18:05)
[2019-02-17] MEDS ORDERED: pantoprazole 40 MG vial IV ONE (16:40)
[2019-02-17 18:02] LABS: CLARITY,URINE CLEAR (Clear); COLOR,URINE YELLOW (Yellow); GLUCOSE, URINE >=1000 mg/dl (Neg); KETONES,URINE >=80 mg/dl (Neg); LEUKOCYTE ESTERASE ,URINE NEGATIVE (Neg); NITRITES, URINE NEGATIVE (Neg); OCCULT BLOOD,URINE SMALL (Neg); PROTEIN,URINE NEGATIVE (Neg); UROBILINOGEN,URINE 0.2 E.U/dL (0.2-1.0)
[2019-02-17 18:03] LABS: URINE HCG NEGATIVE (NEG)
[2019-02-17 18:08] LABS: UA COLLECTION TYPE CLN CATCH MIDSTREAM
[2019-02-17 18:09] LABS: BACTERIA,URINE NONE SEEN /HPF (Neg); SQUAMOUS EPITHELIAL CELL,UR NONE SEEN /LPF (FEW); WBC,URINE NONE SEEN /HPF (0-4)
[2019-02-17] MEDS ORDERED: potassium Cl 20 mEq SR tablet PO STA (18:21)
--- NOTE | 2019-02-17 18:41 | NUR ---
pt resting in bed pt stated that she is feeling lot better,iv potassium is infusing as per md orders,vitals stable ,denies any concern.
--- NOTE | 2019-02-17 18:51 | NUR ---
Patient resting comfortably in bed and speaking to someone on the phone. Patient reports some improvement of her symptoms. Patient updated on POC.
--- NOTE | 2019-02-17 20:24 | NUR ---
Patient is sleeping comfortably. Waiting for repeat on CMP.
[2019-02-17 20:52] LABS: ALANINE AMINOTRANSFERASE 27 U/L (12-78); ALBUMIN 2.4 G/DL (3.4-5.0); ALBUMIN/GLOBULIN RATIO 0.6 (1.1-1.5); ALKALINE PHOSPHATASE 138 IU/L (46-116); ANION GAP 19 (8-16); BILIRUBIN,TOTAL 0.2 MG/DL (0.1-1.0); BLOOD UREA NITROGEN 4 MG/DL (7-18); BUN/CREATININE RATIO 8.7 (6.6-38.0); CALCIUM 7.6 MG/DL (8.5-10.1); CHLORIDE 97 MMOL/L (99-107); CREATININE 0.46 MG/DL (0.40-0.90); GLUCOSE 316 MG/DL (70-104); POTASSIUM 4.1 MMOL/L (3.5-5.1); SODIUM 132 MMOL/L (135-145); TOTAL CARBON DIOXIDE 16.1 MMOL/L (24-32); TOTAL PROTEIN 6.5 G/DL (6.4-8.2); eGFR > 90 ML/MIN
[2019-02-17] MEDS ORDERED: insulin regular, human 10 units/0.1 ml syringe IV ONE (21:05)
[2019-02-17 21:08] LABS: ASPARTATE AMINO TRANSFERASE 38 U/L (10-37)
[2019-02-17] MEDS ORDERED: sucralfate 1gm/10ml UD suspension PO ONE (21:15)
[2019-02-17] MEDS ORDERED: POTA20TA19 PO (21:54)
[2019-02-17 22:26] LABS: ABG BASE EXCESS -6.1 mmol/L (-2.0-3.0); ABG HCO3 17.1 mmol/L (22.0-26.0); ABG OXYGEN SATURATION 94.7 % (95-98); ABG PCO2 (T) 27.4 mmHg (32.0-45.0); ABG PH (T) 7.414 (7.350-7.450); ABG PO2 (T) 73.2 mmHg (83-108); ALLEN'S TEST Positive; FCOHb 0.6 % (0.5-1.5); FMetHb 0.2 % (0.3-1.12); FO2Hb 93.9 % (94-100); PATIENT TEMPERATURE 36.8; TOTAL HEMOGLOBIN 12.3 G/dl (12.0-16.0)
[2019-02-17 22:48] VITALS: BP 125/76
== END 2019-02-17 23:05 | disposition home or self-care (01) ==
LOC: ER 15:04
DX: E11.65 Type 2 diabetes mellitus with hyperglycemia (principal); E87.6 Hypokalemia; R10.84 Generalized abdominal pain; J45.909 Unspecified asthma, uncomplicated; F12.90 Cannabis use, unspecified, uncomplicated; F15.90 Other stimulant use, unspecified, uncomplicated; Z98.890 Other specified postprocedural states; Z98.51 Tubal ligation status; Z88.0 Allergy status to penicillin; Z88.5 Allergy status to narcotic agent; Z79.899 Other long term (current) drug therapy
CPT/HCPCS: 36415; 36600; 80053; 80320; 81001; 81025; 82803; 82948; 83690; 85018; 85025; 85610; 93005; 96361; 96365; 96366; 96368; 96375; 99284; J1200; J1815; J2405; J2765; J3411; J3475; J3480; J7030

== ENCOUNTER 2019-02-20 17:49 | Emergency (ER) | payer MEDICAID ==
[~2019-02-20] VITALS: Ht 160 cm; Wt 36.0 kg
[~2019-02-20 17:49] MED LIST changes: -ESOMEPRAZOLE 40 MG VIAL IV ONE; +POTA20TA19 PO
[2019-02-20] MEDS ORDERED: normal saline 1000ML IV soln IVB ONE (18:25)
[2019-02-20 18:35] VITALS: BP 113/59
== END 2019-02-20 18:37 | disposition left against medical advice (07) ==
LOC: ER 17:50
DX: E11.65 Type 2 diabetes mellitus with hyperglycemia (principal); R11.2 Nausea with vomiting, unspecified; R42 Dizziness and giddiness; R53.83 Other fatigue; F15.90 Other stimulant use, unspecified, uncomplicated; F12.90 Cannabis use, unspecified, uncomplicated; J44.9 Chronic obstructive pulmonary disease, unspecified; Z88.0 Allergy status to penicillin; Z88.6 Allergy status to analgesic agent; Z79.899 Other long term (current) drug therapy; Z98.890 Other specified postprocedural states; Z98.51 Tubal ligation status
CPT/HCPCS: 82948; 99284

== ENCOUNTER 2019-02-24 13:40 | Emergency (ER) | payer MEDICAID ==
[~2019-02-24] VITALS: Ht 160 cm; Wt 43.0 kg
[2019-02-24 13:55] VITALS: BP 125/86
[2019-02-24] MEDS ORDERED: CHLO25CA10 PO (14:29)
[2019-02-26] MEDS ORDERED: ACET-2119 PO (13:36)
[2019-02-26] MEDS ORDERED: PANT-47 PO (13:36)
== END 2019-02-24 14:45 | disposition home or self-care (01) ==
LOC: ER 13:40
DX: R25.1 Tremor, unspecified (principal); R00.0 Tachycardia, unspecified; F12.90 Cannabis use, unspecified, uncomplicated; F15.90 Other stimulant use, unspecified, uncomplicated; J44.9 Chronic obstructive pulmonary disease, unspecified; E11.9 Type 2 diabetes mellitus without complications; Z02.89 Encounter for other administrative examinations; Z87.19 Personal history of other diseases of the digestive system; Z88.0 Allergy status to penicillin; Z88.5 Allergy status to narcotic agent; Z79.899 Other long term (current) drug therapy; Z98.51 Tubal ligation status; Z98.890 Other specified postprocedural states
CPT/HCPCS: 99283

== ENCOUNTER 2019-05-02 20:24 | Emergency (ER) | payer MEDICAID ==
[~2019-05-02] VITALS: Ht 160 cm; Wt 44.1 kg
[~2019-05-02 20:24] MED LIST changes: +CHLO25CA10 PO; +PANT-47 PO; -POTA20TA19 PO
[2019-05-02] MEDS ORDERED: normal saline 1000ML IV soln IVB ONE (20:45)
[2019-05-02 21:07] LABS: BASOPHILS # (AUTO) 0.1 X10'3 (0-0.2); BASOPHILS % (AUTO) 0.7 % (0-1); EOSINOPHILS % (AUTO) 0.3 % (0-6); HEMATOCRIT 42.7 % (35.0-45.0); HEMOGLOBIN 14.5 g/dl (12.0-16.0); LYMPHOCYTES # (AUTO) 3.9 X10'3 (1.1-4.8); LYMPHOCYTES % (AUTO) 36.4 % (21-51); MEAN CORPUSCULAR HEMOGLOBIN 32.7 PG (27.0-31.0); MEAN CORPUSCULAR VOLUME 96.3 FL (78-98); MEAN PLATELET VOLUME 7.9 FL (7.4-10.4); MONOCYTES # (AUTO) 0.5 X10'3 (0-0.9); MONOCYTES % (AUTO) 4.6 % (2-12); NEUTROPHILS # (AUTO) 6.2 X10'3 (1.8-7.7); PLATELET COUNT 338 X10'3 (140-440); RED BLOOD COUNT 4.43 X10'6 (4.20-5.60); RED CELL DISTRIBUTION WIDTH 14.6 % (11.5-14.5); WHITE BLOOD COUNT 10.6 X10'3 (4.5-11.0)
[2019-05-02 21:10] LABS: ALANINE AMINOTRANSFERASE 46 U/L (12-78); ALBUMIN 3.1 G/DL (3.4-5.0); ALBUMIN/GLOBULIN RATIO 0.7 (1.1-1.5); ALKALINE PHOSPHATASE 159 IU/L (46-116); ANION GAP 15 (8-16); ASPARTATE AMINO TRANSFERASE 43 U/L (10-37); BILIRUBIN,TOTAL 0.5 MG/DL (0.1-1.0); BLOOD UREA NITROGEN 20 MG/DL (7-18); BUN/CREATININE RATIO 26.3 (6.6-38.0); CALCIUM 8.7 MG/DL (8.5-10.1); CHLORIDE 101 MMOL/L (99-107); CREATININE 0.76 MG/DL (0.40-0.90); ETHANOL 0.223 GM/DL (0.0-0.010); GLUCOSE 242 MG/DL (70-104); LIPASE < 50 U/L (73-393); SODIUM 138 MMOL/L (135-145); TOTAL CARBON DIOXIDE 21.7 MMOL/L (24-32); TOTAL PROTEIN 7.6 G/DL (6.4-8.2); eGFR 88 ML/MIN
[2019-05-02 21:19] LABS: URINE HCG NEGATIVE (NEG)
[2019-05-02 21:21] LABS: CLARITY,URINE CLEAR (Clear); COLOR,URINE YELLOW (Yellow); GLUCOSE, URINE NEGATIVE (Neg); KETONES,URINE 15 mg/dl (Neg); LEUKOCYTE ESTERASE ,URINE NEGATIVE (Neg); NITRITES, URINE NEGATIVE (Neg); OCCULT BLOOD,URINE SMALL (Neg); PH,URINE 5.5 (4.8-8.0); PROTEIN,URINE 30 mg/dl (Neg)
[2019-05-02 21:26] LABS: UA COLLECTION TYPE CLN CATCH MIDSTREAM
[2019-05-02 21:27] LABS: BACTERIA,URINE FEW /HPF (Neg); HYALINE CASTS 0-3 /LPF (NEGATIVE); MUCUS STRANDS FEW /LPF (Neg); RBC,URINE 0-2 /HPF (0-2); SQUAMOUS EPITHELIAL CELL,UR FEW /LPF (FEW); WBC,URINE 0-4 /HPF (0-4)
[2019-05-02 21:32] LABS: URINE AMPHETAMINE SCREEN POSITIVE (Neg); URINE BARBITUATE SCREEN NEGATIVE (Neg); URINE BENZODIAZEPINES SCREEN NEGATIVE (Neg); URINE CANNABINOID SCREEN POSITIVE (Neg); URINE COCAINE SCREEN NEGATIVE (Neg); URINE METHADONE SCREEN NEGATIVE (Neg); URINE OPIATE SCREEN NEGATIVE (Neg); URINE PHENCYCLIDINE SCREEN NEGATIVE (Neg)
[2019-05-02 23:33] VITALS: BP 114/78
== END 2019-05-02 23:46 | disposition home or self-care (01) ==
LOC: ER 20:24
DX: E11.65 Type 2 diabetes mellitus with hyperglycemia (principal); R11.2 Nausea with vomiting, unspecified; I10 Essential (primary) hypertension; J45.909 Unspecified asthma, uncomplicated; K21.9 Gastro-esophageal reflux disease without esophagitis; F32.9 Major depressive disorder, single episode, unspecified; F12.90 Cannabis use, unspecified, uncomplicated; F17.200 Nicotine dependence, unspecified, uncomplicated; F10.20 Alcohol dependence, uncomplicated; Z98.51 Tubal ligation status; Z98.890 Other specified postprocedural states; Z88.0 Allergy status to penicillin; Z88.5 Allergy status to narcotic agent; Z79.899 Other long term (current) drug therapy; Y90.0 Blood alcohol level of less than 20 mg/100 ml
CPT/HCPCS: 36415; 80053; 80305; 80320; 81001; 81025; 82948; 83690; 85025; 96360; 96361; 99283; J7030

== ENCOUNTER 2019-05-22 13:32 | Emergency (ER) | payer MEDICAID ==
[~2019-05-22] VITALS: Ht 160 cm; Wt 52.3 kg
[2019-05-22] MEDS ORDERED: normal saline 1000ml 1,000 ML IV ONE ×2 (14:20)
[2019-05-22] MEDS ORDERED: insulin regular, human 10 units/0.1 ml syringe IV ONE ×2 (14:35→14:45)
[2019-05-22] MEDS ORDERED: normal saline 1000ML IV soln IV ONE (14:35)
[2019-05-22 14:44] LABS: BASOPHILS % (AUTO) 0.4 % (0-1); EOSINOPHILS % (AUTO) 0.2 % (0-6); HEMATOCRIT 41.3 % (35.0-45.0); HEMOGLOBIN 13.7 g/dl (12.0-16.0); LYMPHOCYTES # (AUTO) 2.4 X10'3 (1.1-4.8); LYMPHOCYTES % (AUTO) 38.4 % (21-51); MEAN CORPUSCULAR HEMOGLOBIN 32.5 PG (27.0-31.0); MEAN CORPUSCULAR HGB CONC 33.2 g/dL (33.0-36.5); MEAN CORPUSCULAR VOLUME 97.7 FL (78-98); MEAN PLATELET VOLUME 9.3 FL (7.4-10.4); MONOCYTES # (AUTO) 0.5 X10'3 (0-0.9); MONOCYTES % (AUTO) 7.6 % (2-12); NEUTROPHILS # (AUTO) 3.3 X10'3 (1.8-7.7); NEUTROPHILS % (AUTO) 53.4 % (42-75); PLATELET COUNT 209 X10'3 (140-440); RED BLOOD COUNT 4.22 X10'6 (4.20-5.60); RED CELL DISTRIBUTION WIDTH 15.3 % (11.5-14.5); WHITE BLOOD COUNT 6.2 X10'3 (4.5-11.0)
[2019-05-22 14:52] LABS: ALANINE AMINOTRANSFERASE 40 U/L (12-78); ALBUMIN/GLOBULIN RATIO 0.6 (1.1-1.5); ALKALINE PHOSPHATASE 157 IU/L (46-116); ANION GAP 9 (8-16); ASPARTATE AMINO TRANSFERASE 42 U/L (10-37); BILIRUBIN,TOTAL 0.6 MG/DL (0.1-1.0); BLOOD UREA NITROGEN 11 MG/DL (7-18); BUN/CREATININE RATIO 14.1 (6.6-38.0); CALCIUM 9.6 MG/DL (8.5-10.1); CHLORIDE 98 MMOL/L (99-107); CREATININE 0.78 MG/DL (0.40-0.90); GLUCOSE 436 MG/DL (70-104); SODIUM 137 MMOL/L (135-145); TOTAL CARBON DIOXIDE 30.4 MMOL/L (24-32); TOTAL PROTEIN 8.1 G/DL (6.4-8.2); eGFR 85 ML/MIN
[2019-05-22] MEDS ORDERED: BLOO-579 METER (15:33)
[2019-05-22] MEDS ORDERED: LANTUS SQ (15:33)
[2019-05-22] MEDS ORDERED: [UNRECOGNIZED DRUG - CODE] (15:33)
[2019-05-22] MEDS ORDERED: BLOO-577 (15:33)
[2019-05-22] MEDS ORDERED: LANC-509 TP (15:33)
[2019-05-22 15:34] VITALS: BP 104/74
== END 2019-05-22 15:44 | disposition home or self-care (01) ==
LOC: ER 13:33
DX: E11.65 Type 2 diabetes mellitus with hyperglycemia (principal); I10 Essential (primary) hypertension; K21.9 Gastro-esophageal reflux disease without esophagitis; F32.9 Major depressive disorder, single episode, unspecified; J44.9 Chronic obstructive pulmonary disease, unspecified; F17.200 Nicotine dependence, unspecified, uncomplicated; F12.90 Cannabis use, unspecified, uncomplicated; Z88.0 Allergy status to penicillin; Z88.5 Allergy status to narcotic agent; Z98.51 Tubal ligation status; Z98.890 Other specified postprocedural states; Z79.4 Long term (current) use of insulin; Z79.899 Other long term (current) drug therapy
CPT/HCPCS: 36415; 80053; 82948; 85025; 96361; 96374; 99283; J1815; J7030

== ENCOUNTER 2019-08-14 11:38 | Emergency (ER) | payer MEDICAID ==
[~2019-08-14] VITALS: Ht 157.5 cm; Wt 45.0 kg
[~2019-08-14 11:38] MED LIST changes: +BLOO-577; +BLOO-579 METER; +LANC-509 TP; +LANTUS SQ; +[UNRECOGNIZED DRUG - CODE]
[2019-08-14] MEDS ORDERED: normal saline 1000ML IV soln IVB ONE (12:25)
--- NOTE | 2019-08-14 12:25 | NUR ---
PATIENT IS FAIRLY NEW DIABETIC AND RAN OUT OF LISPRO INSULIN. STATES NEEDS MED REFILL. TAKES BASALGLAR AT HS AND STILL HAS SOME OF THAT INSULIN, BUT NEEDS PEN NEEDLES FOR ADMINISTERING THE MED. STATES NO INSULIN FOR THEPAST 2 DAYS.
[2019-08-14] MEDS ORDERED: insulin regular, human 10 units/0.1 ml syringe SQ ONE (12:55)
[2019-08-14 12:56] LABS: BASOPHILS % (AUTO) 0.8 % (0-1); EOSINOPHILS % (AUTO) 0.3 % (0-6); HEMATOCRIT 31.6 % (35.0-45.0); HEMOGLOBIN 10.8 g/dl (12.0-16.0); LYMPHOCYTES # (AUTO) 1.8 X10'3 (1.1-4.8); LYMPHOCYTES % (AUTO) 30.1 % (21-51); MEAN CORPUSCULAR HEMOGLOBIN 34.4 PG (27.0-31.0); MEAN CORPUSCULAR HGB CONC 34.3 g/dL (33.0-36.5); MEAN CORPUSCULAR VOLUME 100.1 FL (78-98); MONOCYTES # (AUTO) 0.3 X10'3 (0-0.9); MONOCYTES % (AUTO) 4.5 % (2-12); NEUTROPHILS # (AUTO) 3.9 X10'3 (1.8-7.7); NEUTROPHILS % (AUTO) 64.3 % (42-75); PLATELET COUNT 192 X10'3 (140-440); RED BLOOD COUNT 3.16 X10'6 (4.20-5.60); RED CELL DISTRIBUTION WIDTH 15.4 % (11.5-14.5)
[2019-08-14 12:58] LABS: CLARITY,URINE CLEAR (Clear); COLOR,URINE YELLOW (Yellow); GLUCOSE, URINE >=1000 mg/dl (Neg); KETONES,URINE NEGATIVE (Neg); LEUKOCYTE ESTERASE ,URINE NEGATIVE (Neg); NITRITES, URINE NEGATIVE (Neg); OCCULT BLOOD,URINE TRACE-INTACT (Neg); PROTEIN,URINE NEGATIVE (Neg); UROBILINOGEN,URINE 0.2 E.U/dL (0.2-1.0)
[2019-08-14 12:59] LABS: UA COLLECTION TYPE CLN CATCH MIDSTREAM
[2019-08-14 13:07] LABS: RBC,URINE 0-2 /HPF (0-2); WBC,URINE 0-4 /HPF (0-4)
[2019-08-14 13:08] LABS: BACTERIA,URINE FEW /HPF (Neg); MUCUS STRANDS NONE SEEN /LPF (Neg); SQUAMOUS EPITHELIAL CELL,UR FEW /LPF (FEW)
[2019-08-14 13:11] LABS: ALANINE AMINOTRANSFERASE 49 U/L (12-78); ALBUMIN 2.5 G/DL (3.4-5.0); ALBUMIN/GLOBULIN RATIO 0.7 (1.1-1.5); ALKALINE PHOSPHATASE 370 IU/L (46-116); ANION GAP 10 (8-16); ASPARTATE AMINO TRANSFERASE 57 U/L (10-37); BILIRUBIN,TOTAL 0.9 MG/DL (0.1-1.0); BLOOD UREA NITROGEN 3 MG/DL (7-18); BUN/CREATININE RATIO 3.6 (6.6-38.0); CALCIUM 8.3 MG/DL (8.5-10.1); CHLORIDE 93 MMOL/L (99-107); CREATININE 0.83 MG/DL (0.40-0.90); GLUCOSE 336 MG/DL (70-104); POTASSIUM 3.4 MMOL/L (3.5-5.1); SODIUM 134 MMOL/L (135-145); TOTAL CARBON DIOXIDE 31.1 MMOL/L (24-32); TOTAL PROTEIN 6.3 G/DL (6.4-8.2); eGFR 79 ML/MIN
[2019-08-14] MEDS ORDERED: PEN1DIS.78 (14:25)
[2019-08-14] MEDS ORDERED: MUPI22OI30 TOP (14:25)
[2019-08-14] MEDS ORDERED: INSU100V11 SQ (14:25)
[2019-08-14 14:53] VITALS: BP 113/73
== END 2019-08-14 14:56 | disposition home or self-care (01) ==
LOC: ER 11:39
DX: E10.65 Type 1 diabetes mellitus with hyperglycemia (principal); L01.00 Impetigo, unspecified; I10 Essential (primary) hypertension; J45.909 Unspecified asthma, uncomplicated; K21.9 Gastro-esophageal reflux disease without esophagitis; F32.9 Major depressive disorder, single episode, unspecified; F12.90 Cannabis use, unspecified, uncomplicated; Z98.51 Tubal ligation status; Z98.890 Other specified postprocedural states; F17.200 Nicotine dependence, unspecified, uncomplicated; Z88.5 Allergy status to narcotic agent; Z88.0 Allergy status to penicillin; Z79.899 Other long term (current) drug therapy
CPT/HCPCS: 36415; 80053; 81001; 82043; 82948; 85025; 96374; 99283; J1815; J7030

== ENCOUNTER 2019-11-24 13:04 | Emergency (ER) | payer MEDICAID ==
[~2019-11-24] VITALS: Ht 160 cm; Wt 38.3 kg
[~2019-11-24 13:04] MED LIST changes: +INSU100V11 SQ; +PEN1DIS.78
[2019-11-24 13:30] VITALS: BP 117/67
[2019-11-24] MEDS ORDERED: MUPI22OI30 TP (14:03)
[2019-11-24] MEDS ORDERED: PERM60CR19 TP (14:03)
[2019-11-24] MEDS ORDERED: CLIN-97 PO (14:03)
== END 2019-11-24 14:13 | disposition home or self-care (01) ==
LOC: ER 13:04
DX: L03.811 Cellulitis of head [any part, except face] (principal); I10 Essential (primary) hypertension; J45.909 Unspecified asthma, uncomplicated; K21.9 Gastro-esophageal reflux disease without esophagitis; E10.9 Type 1 diabetes mellitus without complications; F12.90 Cannabis use, unspecified, uncomplicated; Z98.890 Other specified postprocedural states; Z98.51 Tubal ligation status; Z88.0 Allergy status to penicillin; Z88.5 Allergy status to narcotic agent; Z79.4 Long term (current) use of insulin; Z79.899 Other long term (current) drug therapy
CPT/HCPCS: 99283

== ENCOUNTER 2020-01-03 16:37 | Emergency (ER) | payer MEDICAID ==
[~2020-01-03] VITALS: Ht 160 cm; Wt 40.0 kg
[~2020-01-03 16:37] MED LIST changes: +CLIN-97 PO
[2020-01-03 16:47] VITALS: BP 95/60
[2020-01-03] MEDS ORDERED: normal saline 1000ml 1,000 ML IV ONE ×2 (17:10→17:25)
[2020-01-03] MEDS ORDERED: ondansetron/PF 4mg/2ml inj IV ONE (17:25)
[2020-01-03 17:39] LABS: BASOPHILS # (AUTO) 0.1 X10'3 (0-0.2); BASOPHILS % (AUTO) 1.2 % (0-1); EOSINOPHILS % (AUTO) 0.3 % (0-6); HEMATOCRIT 29.8 % (35.0-45.0); HEMOGLOBIN 9.9 g/dl (12.0-16.0); LYMPHOCYTES # (AUTO) 2.5 X10'3 (1.1-4.8); MEAN CORPUSCULAR HEMOGLOBIN 32.6 PG (27.0-31.0); MEAN CORPUSCULAR HGB CONC 33.2 g/dL (33.0-36.5); MEAN PLATELET VOLUME 8.4 FL (7.4-10.4); MONOCYTES # (AUTO) 0.4 X10'3 (0-0.9); MONOCYTES % (AUTO) 8.4 % (2-12); NEUTROPHILS # (AUTO) 1.9 X10'3 (1.8-7.7); NEUTROPHILS % (AUTO) 39.1 % (42-75); PLATELET COUNT 353 X10'3 (140-440); RED BLOOD COUNT 3.04 X10'6 (4.20-5.60); RED CELL DISTRIBUTION WIDTH 14.7 % (11.5-14.5); WHITE BLOOD COUNT 4.9 X10'3 (4.5-11.0)
[2020-01-03 17:47] LABS: PARTIAL THROMBOPLASTIN TIME 28 SECONDS (22-32)
[2020-01-03 17:51] LABS: ALANINE AMINOTRANSFERASE 72 U/L (12-78); ALBUMIN 3.2 G/DL (3.4-5.0); ALKALINE PHOSPHATASE 170 IU/L (46-116); ANION GAP 6 (8-16); ASPARTATE AMINO TRANSFERASE 63 U/L (10-37); BILIRUBIN,TOTAL 0.3 MG/DL (0.1-1.0); BLOOD UREA NITROGEN 14 MG/DL (7-18); CALCIUM 8.4 MG/DL (8.5-10.1); CHLORIDE 94 MMOL/L (99-107); ETHANOL 0.151 GM/DL (0.0-0.010); LIPASE < 50 U/L (73-393); MAGNESIUM 1.5 MG/DL (1.5-2.4); POTASSIUM 4.7 MMOL/L (3.5-5.1); SODIUM 130 MMOL/L (135-145); TOTAL CARBON DIOXIDE 29.9 MMOL/L (24-32); TOTAL PROTEIN 6.3 G/DL (6.4-8.2); eGFR > 90 ML/MIN
[2020-01-03 17:53] LABS: GLUCOSE 520 MG/DL (70-104)
[2020-01-03] MEDS ORDERED: insulin regular, human U-100 3ml vial - multi-dose IV ONE (18:00)
[2020-01-03 18:16] LABS: TOTAL CELLS COUNTED 100
[2020-01-03 18:18] LABS: PLATELET ESTIMATE NORMAL; POLYCHROMASIA FEW; STOMATOCYTES FEW
[2020-01-03] MEDS ORDERED: HYDROcodone/acetaminophen 5mg/325mg tablet PO ONE (20:00)
== END 2020-01-03 21:10 | disposition home or self-care (01) ==
LOC: ER 16:38
DX: E10.65 Type 1 diabetes mellitus with hyperglycemia (principal); M25.531 Pain in right wrist; I10 Essential (primary) hypertension; J45.909 Unspecified asthma, uncomplicated; K21.9 Gastro-esophageal reflux disease without esophagitis; F32.9 Major depressive disorder, single episode, unspecified; F12.90 Cannabis use, unspecified, uncomplicated; Z98.51 Tubal ligation status; Z98.890 Other specified postprocedural states; Z88.0 Allergy status to penicillin; Z88.5 Allergy status to narcotic agent; Z79.899 Other long term (current) drug therapy
CPT/HCPCS: 29125; 36415; 73090; 80053; 80320; 82948; 83690; 83735; 85025; 85610; 85730; 96374; 96375; 99284; J2405; J7030; 96361; J1815

== ENCOUNTER 2020-01-17 12:51 | Inpatient (IN) | payer MEDICAID ==
[~2020-01-17] VITALS: Ht 160 cm; Wt 39.0 kg
[~2020-01-17 12:51] MED LIST changes: +ALBU17AE26 IH; -BLOO-577; -BLOO-579 METER; -CHLO25CA10 PO; -CLIN-97 PO; +FOLI0.4T14 PO; -FOLI1TAB16 PO; +GABA-530 PO; +HYDR-3686 PO; +INSU100I31 SQ; +INSU100I45 SQ; -INSU100V11 SQ; -LANC-509 TP; -LANTUS SQ; +LISI2.5T2 PO; +OMEP-50 PO; -OMEP20TA23 PO; -ONDA4TAB6 PO; -ONDA4TAB9 SL; -PANC1CAP; -PANT-47 PO; -PEN1DIS.78; -SERT25TA5; +SERT25TA5 PO; -THI100T PO; -[UNRECOGNIZED DRUG - CODE]
[2020-01-17] MEDS ORDERED: normal saline 1000ML IV soln IV ONE (13:20)
[2020-01-17 13:59] LABS: BASOPHILS % (AUTO) 0.6 % (0-1); EOSINOPHILS % (AUTO) 0.4 % (0-6); HEMATOCRIT 33.2 % (35.0-45.0); HEMOGLOBIN 10.9 g/dl (12.0-16.0); LYMPHOCYTES % (AUTO) 37.6 % (21-51); MEAN CORPUSCULAR HEMOGLOBIN 32.7 PG (27.0-31.0); MEAN CORPUSCULAR HGB CONC 32.8 g/dL (33.0-36.5); MEAN CORPUSCULAR VOLUME 99.8 FL (78-98); MEAN PLATELET VOLUME 9.2 FL (7.4-10.4); MONOCYTES # (AUTO) 0.3 X10'3 (0-0.9); MONOCYTES % (AUTO) 6.3 % (2-12); NEUTROPHILS % (AUTO) 55.1 % (42-75); PLATELET COUNT 263 X10'3 (140-440); RED BLOOD COUNT 3.33 X10'6 (4.20-5.60); RED CELL DISTRIBUTION WIDTH 15.1 % (11.5-14.5); WHITE BLOOD COUNT 5.4 X10'3 (4.5-11.0)
[2020-01-17 14:10] LABS: ALANINE AMINOTRANSFERASE 53 U/L (12-78); ALBUMIN 2.9 G/DL (3.4-5.0); ALBUMIN/GLOBULIN RATIO 0.8 (1.1-1.5); ALKALINE PHOSPHATASE 197 IU/L (46-116); ANION GAP 8 (8-16); ASPARTATE AMINO TRANSFERASE 29 U/L (10-37); BILIRUBIN,TOTAL 0.4 MG/DL (0.1-1.0); BLOOD UREA NITROGEN 8 MG/DL (7-18); BUN/CREATININE RATIO 9.6 (6.6-38.0); CALCIUM 8.3 MG/DL (8.5-10.1); CHLORIDE 96 MMOL/L (99-107); CREATININE 0.83 MG/DL (0.40-0.90); LIPASE < 50 U/L (73-393); POTASSIUM 3.7 MMOL/L (3.5-5.1); SODIUM 137 MMOL/L (135-145); TOTAL CARBON DIOXIDE 33.5 MMOL/L (24-32); TOTAL PROTEIN 6.6 G/DL (6.4-8.2); eGFR 79 ML/MIN
[2020-01-17 14:13] LABS: GLUCOSE 648 MG/DL (70-104)
[2020-01-17] MEDS ORDERED: normal saline 1000ml 1,000 ML IV SCH ×2 (14:26→17:00)
[2020-01-17] MEDS ORDERED: insulin regular, human U-100 3ml vial - multi-dose IV PRN ×2 (14:30→17:00)
[2020-01-17 14:46] LABS: CLARITY,URINE CLEAR (Clear); COLOR,URINE STRAW (Yellow); GLUCOSE, URINE >=1000 mg/dl (Neg); KETONES,URINE NEGATIVE (Neg); LEUKOCYTE ESTERASE ,URINE NEGATIVE (Neg); NITRITES, URINE NEGATIVE (Neg); OCCULT BLOOD,URINE NEGATIVE (Neg); PROTEIN,URINE NEGATIVE (Neg); UROBILINOGEN,URINE 0.2 E.U/dL (0.2-1.0)
[2020-01-17 14:47] LABS: UA COLLECTION TYPE CLN CATCH MIDSTREAM; URINE HCG NEGATIVE (NEG)
[2020-01-17 14:51] LABS: BACTERIA,URINE NONE SEEN /HPF (Neg); MUCUS STRANDS NONE SEEN /LPF (Neg); RBC,URINE NONE SEEN /HPF (0-2); SQUAMOUS EPITHELIAL CELL,UR FEW /LPF (FEW); WBC,URINE 0-4 /HPF (0-4)
[2020-01-17] MEDS ORDERED: ketorolac tromethamine 15mg/ml inj. IV ONE (15:50)
[2020-01-17] MEDS ORDERED: normal saline 1000ml 1,000 ML IV ONE (15:50)
[2020-01-17] MEDS ORDERED: ondansetron/PF 4mg/2ml inj IV PRN (17:00)
[2020-01-17] MEDS ORDERED: MESSAGE TO PHARMACY PO ONE (17:00)
[2020-01-17] MEDS ORDERED: dextrose 50%-water 50ml dispensing syringe IV PRN ×2 (17:00)
[2020-01-17] MEDS ORDERED: HYDROcodone/acetaminophen 5mg/325mg tablet PO PRN (17:00)
[2020-01-17] MEDS ORDERED: glucagon, human recombinant 1mg kit SUBCUT PRN (17:00)
[2020-01-17] MEDS ORDERED: dextrose ORAL solution 15 GM/59 ML bottle PO PRN ×2 (17:00)
[2020-01-17] MEDS ORDERED: magnesium hydroxide 30ml (MOM) UD suspension PO PRN (17:00)
[2020-01-17] MEDS ORDERED: mag hydrox/Alum hydrox/simeth 30ml oral suspension PO PRN (17:00)
[2020-01-17] MEDS ORDERED: acetaminophen 325mg tablet PO PRN ×2 (17:00)
[2020-01-17] MEDS: normal saline 1000ml 1,000 ML IV SCH ×3 (17:30→18:56)
[2020-01-17 18:25] LABS: ALBUMIN 2.5 G/DL (3.4-5.0); ANION GAP 9 (8-16); BLOOD UREA NITROGEN 8 MG/DL (7-18); CALCIUM 6.8 MG/DL (8.5-10.1); CHLORIDE 106 MMOL/L (99-107); GLUCOSE 255 MG/DL (70-104); POTASSIUM 3.3 MMOL/L (3.5-5.1); SODIUM 142 MMOL/L (135-145); eGFR > 90 ML/MIN
[2020-01-17 18:29] LABS: HEMOGLOBIN A1C 11.7 % (4.5-6.2)
[2020-01-17] MEDS: HYDROmorphone inj. 0.5 MG/0.5 ML DISP.SYRIN IV PRN ×2 (19:17→23:06)
--- NOTE | 2020-01-17 20:45 | NUR ---
RECEIVED PT FROM [facility] FOLLOWING VERBAL REPORT FROM MARISOL.
[2020-01-17 21:00] VITALS: BP 127/82
[2020-01-17] MEDS: HYDROcodone/acetaminophen 10/325mg tab PO PRN (21:43)
[2020-01-17] MEDS ORDERED: Melatonin 3mg tablet PO PRN (22:30)
[2020-01-17] MEDS: insulin Lispro (HumaLOG) vial - multi-dose SQ SCH (22:39)
[2020-01-17] MEDS: insulin glargine (Lantus) pen - multi-dose SQ SCH (22:40)
[2020-01-17] MEDS: nicotine 14mg patch - 24hr TD SCH (22:45)
[2020-01-18] VITALS (7 sets, daily range): BP systolic 105–139; BP diastolic 72–97
[2020-01-18] MEDS: normal saline 1000ml 1,000 ML IV SCH ×3 (01:17→23:02)
[2020-01-18] MEDS: HYDROmorphone inj. 0.5 MG/0.5 ML DISP.SYRIN IV PRN ×4 (04:58→20:52)
[2020-01-18 05:10] LABS: BASOPHILS % (AUTO) 0.5 % (0-1); EOSINOPHILS % (AUTO) 0.5 % (0-6); HEMATOCRIT 25.7 % (35.0-45.0); HEMOGLOBIN 8.7 g/dl (12.0-16.0); LYMPHOCYTES # (AUTO) 2.1 X10'3 (1.1-4.8); LYMPHOCYTES % (AUTO) 33.6 % (21-51); MEAN CORPUSCULAR HEMOGLOBIN 33.1 PG (27.0-31.0); MEAN CORPUSCULAR HGB CONC 33.7 g/dL (33.0-36.5); MEAN CORPUSCULAR VOLUME 98.3 FL (78-98); MEAN PLATELET VOLUME 8.7 FL (7.4-10.4); MONOCYTES # (AUTO) 0.6 X10'3 (0-0.9); MONOCYTES % (AUTO) 9.1 % (2-12); NEUTROPHILS # (AUTO) 3.5 X10'3 (1.8-7.7); NEUTROPHILS % (AUTO) 56.3 % (42-75); PLATELET COUNT 222 X10'3 (140-440); RED BLOOD COUNT 2.62 X10'6 (4.20-5.60); RED CELL DISTRIBUTION WIDTH 14.9 % (11.5-14.5); WHITE BLOOD COUNT 6.2 X10'3 (4.5-11.0)
[2020-01-18 05:29] LABS: ALBUMIN 2.3 G/DL (3.4-5.0); ANION GAP 5 (8-16); BLOOD UREA NITROGEN 12 MG/DL (7-18); BUN/CREATININE RATIO 22.2 (6.6-38.0); CALCIUM 7.1 MG/DL (8.5-10.1); CHLORIDE 102 MMOL/L (99-107); CREATININE 0.54 MG/DL (0.40-0.90); GLUCOSE 183 MG/DL (70-104); PHOSPHORUS 3.2 MG/DL (2.3-4.5); POTASSIUM 3.3 MMOL/L (3.5-5.1); SODIUM 138 MMOL/L (135-145); eGFR > 90 ML/MIN
--- NOTE | 2020-01-18 06:27 | NUR ---
Problems reprioritized. Patient report given, questions answered & plan of care reviewed with
--- NOTE | 2020-01-18 06:32 | NUR ---
Patient in room PCU 3013. I have received report from Audra EDWARDS and had the opportunity to ask questions and assume patient care.
[2020-01-18] MEDS ORDERED: hydrOXYzine 25 MG tablet PO PRN (07:00)
[2020-01-18] MEDS ORDERED: albuterol 2.5 MG/3 ML nebule NEB PRN (07:05)
[2020-01-18] MEDS: HYDROcodone/acetaminophen 10/325mg tab PO PRN (08:10)
[2020-01-18] MEDS: sertraline 25mg tablet PO SCH (08:10)
[2020-01-18] MEDS: folic acid 1mg tablet PO SCH (08:10)
[2020-01-18] MEDS: pantoprazole 40mg Tablet.DR PO SCH (08:11)
[2020-01-18] MEDS: nicotine 14mg patch - 24hr TD SCH (08:12)
[2020-01-18] MEDS: lisinopril 2.5mg tablet PO SCH (08:15)
[2020-01-18] MEDS ORDERED: potassium Cl 20 mEq SR tablet PO STA (09:33)
[2020-01-18] MEDS: LORazepam 1 MG tablet PO PRN ×2 (09:51→19:23)
[2020-01-18] MEDS: insulin Lispro (HumaLOG) vial - multi-dose SQ SCH ×2 (09:56→19:16)
--- NOTE | 2020-01-18 13:54 | NUR ---
patient blood sugar 43@1200hrs. given two glucose shots per protocol. rechecked 15mins later was 129. will continue to monitor.
--- NOTE | 2020-01-18 17:42 | NUR ---
patient medicated with dilaudid x2 for generalized pain. Ativan PO effective this am for anxiety. patient continually requesting food. BS [id number], have educated patient with regards amount and frequency of food. patient appears to be a very brittle Diabetic type 1. will continue to monitor.
--- NOTE | 2020-01-18 18:30 | NUR ---
Patient in room PCU 3013. I have received report from BLAINE and had the opportunity to ask questions and assume patient care. ASSUMED CARE OF PT WITH RN STUDENT HARLAN Negron
--- NOTE | 2020-01-18 18:34 | NUR ---
Problems reprioritized. Patient report given, questions answered & plan of care reviewed with Audra EDWARDS.
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
[2020-01-18] MEDS ORDERED: gabapentin 100mg capsule PO SCH (21:00)
[2020-01-18] MEDS: insulin glargine (Lantus) pen - multi-dose SQ SCH (21:00)
[2020-01-19] VITALS: BP 129/95
[2020-01-19] MEDS: HYDROmorphone inj. 0.5 MG/0.5 ML DISP.SYRIN IV PRN ×2 (01:11→07:53)
[2020-01-19 02:00] VITALS: BP 123/81
[2020-01-19 06:05] LABS: ALBUMIN 2.3 G/DL (3.4-5.0); ANION GAP 2 (8-16); BLOOD UREA NITROGEN 5 MG/DL (7-18); BUN/CREATININE RATIO 7.9 (6.6-38.0); CALCIUM 7.8 MG/DL (8.5-10.1); CHLORIDE 98 MMOL/L (99-107); CREATININE 0.63 MG/DL (0.40-0.90); GLUCOSE 345 MG/DL (70-104); POTASSIUM 4.5 MMOL/L (3.5-5.1); SODIUM 134 MMOL/L (135-145); TOTAL CARBON DIOXIDE 33.7 MMOL/L (24-32); eGFR > 90 ML/MIN
--- NOTE | 2020-01-19 06:05 | NUR ---
Student Medication Administration: For this medication-pass time frame, all medication were reviewed, dispensed, administered and documented per hospital policy by HARLAN Negron
--- NOTE | 2020-01-19 06:05 | NUR ---
Student documentation: I have reviewed and agree with all interventions, assessments performed and documented by HARLAN Negron
[2020-01-19 06:06] LABS: BASOPHILS % (AUTO) 0.5 % (0-1); EOSINOPHILS % (AUTO) 0.6 % (0-6); HEMOGLOBIN 9.2 g/dl (12.0-16.0); LYMPHOCYTES # (AUTO) 1.9 X10'3 (1.1-4.8); LYMPHOCYTES % (AUTO) 33.8 % (21-51); MEAN CORPUSCULAR HEMOGLOBIN 33.6 PG (27.0-31.0); MEAN CORPUSCULAR VOLUME 98.9 FL (78-98); MEAN PLATELET VOLUME 9.4 FL (7.4-10.4); MONOCYTES # (AUTO) 0.5 X10'3 (0-0.9); MONOCYTES % (AUTO) 8.2 % (2-12); NEUTROPHILS # (AUTO) 3.3 X10'3 (1.8-7.7); NEUTROPHILS % (AUTO) 56.9 % (42-75); PLATELET COUNT 179 X10'3 (140-440); RED BLOOD COUNT 2.74 X10'6 (4.20-5.60); WHITE BLOOD COUNT 5.7 X10'3 (4.5-11.0)
--- NOTE | 2020-01-19 06:34 | NUR ---
Problems reprioritized. Patient report given, questions answered & plan of care reviewed with HALEY.
[2020-01-19 07:00] VITALS: BP 126/95
[2020-01-19 07:52] VITALS: BP_SYST 126
[2020-01-19] MEDS: pantoprazole 40mg Tablet.DR PO SCH (07:52)
[2020-01-19] MEDS: sertraline 25mg tablet PO SCH (07:52)
[2020-01-19] MEDS: lisinopril 2.5mg tablet PO SCH (07:52)
[2020-01-19] MEDS: folic acid 1mg tablet PO SCH (07:52)
[2020-01-19] MEDS: nicotine 14mg patch - 24hr TD SCH (07:53)
[2020-01-19] MEDS: insulin Lispro (HumaLOG) vial - multi-dose SQ SCH (08:00)
[2020-01-19] MEDS: normal saline 1000ml 1,000 ML IV SCH (10:10)
[2020-01-19] MEDS: LORazepam 1 MG tablet PO PRN (10:14)
[2020-01-19] MEDS ORDERED: INSU100I31 SQ (10:49)
== END 2020-01-19 12:45 | disposition home or self-care (01) | DRG 420 ==
LOC: ER 12:52 → ED HOLD 17:00 → EDBEDREQTM 19:56 → PCU 3S 20:25
PROVIDERS: ADMIT Internal Medicine; ATTEND Internal Medicine
DX: E10.65 Type 1 diabetes mellitus with hyperglycemia (principal); D53.9 Nutritional anemia, unspecified; F10.129 Alcohol abuse with intoxication, unspecified; F32.9 Major depressive disorder, single episode, unspecified; K21.9 Gastro-esophageal reflux disease without esophagitis; E87.6 Hypokalemia; E86.0 Dehydration; F17.200 Nicotine dependence, unspecified, uncomplicated; F12.90 Cannabis use, unspecified, uncomplicated; Z59.0 Homelessness; Z88.0 Allergy status to penicillin; Z79.4 Long term (current) use of insulin; Z79.899 Other long term (current) drug therapy; Z98.891 History of uterine scar from previous surgery
CPT/HCPCS: 36415; 80048; 80053; 80320; 81001; 81025; 82948; 83036; 83605; 83690; 84100; 84145; 85025; 87040; 87081; 93005; 94760; 96374; 96375; 99285; G0378; J1170; J1815; J1885; J2405; J7030; Z7610

== ENCOUNTER 2020-02-08 08:26 | Emergency (ER) | payer MEDICAID ==
[~2020-02-08] VITALS: Ht 157.5 cm; Wt 42.0 kg
[2020-02-08] MEDS ORDERED: pantoprazole 40 MG vial IV ONE (09:15)
[2020-02-08] MEDS ORDERED: normal saline 1000ML IV soln IVB ONE (09:15)
[2020-02-08] MEDS ORDERED: folic acid 1mg tablet PO ONE (09:15)
[2020-02-08] MEDS ORDERED: ondansetron/PF 4mg/2ml inj IV ONE (09:15)
[2020-02-08] MEDS ORDERED: multivitamins, therapeutics tablet PO ONE (09:15)
[2020-02-08] MEDS ORDERED: thiamine 100mg tablet PO ONE (09:15)
[2020-02-08 09:50] LABS: CLARITY,URINE SLIGHTLY CLOUDY (Clear); COLOR,URINE YELLOW (Yellow); GLUCOSE, URINE >=1000 mg/dl (Neg); KETONES,URINE TRACE mg/dl (Neg); LEUKOCYTE ESTERASE ,URINE NEGATIVE (Neg); NITRITES, URINE NEGATIVE (Neg); OCCULT BLOOD,URINE TRACE-INTACT (Neg); PROTEIN,URINE NEGATIVE (Neg); UROBILINOGEN,URINE 0.2 E.U/dL (0.2-1.0)
[2020-02-08 09:55] LABS: BASOPHILS # (AUTO) 0.1 X10'3 (0-0.2); BASOPHILS % (AUTO) 1.1 % (0-1); EOSINOPHILS % (AUTO) 0.4 % (0-6); HEMATOCRIT 34.6 % (35.0-45.0); HEMOGLOBIN 11.7 g/dl (12.0-16.0); LYMPHOCYTES # (AUTO) 3.5 X10'3 (1.1-4.8); MEAN CORPUSCULAR HEMOGLOBIN 32.5 PG (27.0-31.0); MEAN CORPUSCULAR HGB CONC 33.7 g/dL (33.0-36.5); MEAN CORPUSCULAR VOLUME 96.4 FL (78-98); MEAN PLATELET VOLUME 8.4 FL (7.4-10.4); MONOCYTES # (AUTO) 0.4 X10'3 (0-0.9); NEUTROPHILS # (AUTO) 3.1 X10'3 (1.8-7.7); NEUTROPHILS % (AUTO) 44.5 % (42-75); PLATELET COUNT 393 X10'3 (140-440); RED BLOOD COUNT 3.59 X10'6 (4.20-5.60); RED CELL DISTRIBUTION WIDTH 14.8 % (11.5-14.5); WHITE BLOOD COUNT 7.1 X10'3 (4.5-11.0)
[2020-02-08 10:04] LABS: UA COLLECTION TYPE CLN CATCH MIDSTREAM
[2020-02-08 10:05] LABS: BACTERIA,URINE FEW /HPF (Neg); RBC,URINE 0-2 /HPF (0-2); SQUAMOUS EPITHELIAL CELL,UR FEW /LPF (FEW); WBC CLUMPS,URINE MODERATE /HPF (NEGATIVE)
[2020-02-08 10:09] LABS: ALBUMIN 2.8 G/DL (3.4-5.0); ALBUMIN/GLOBULIN RATIO 0.7 (1.1-1.5); ALKALINE PHOSPHATASE 169 IU/L (46-116); ANION GAP 12 (8-16); BILIRUBIN,TOTAL 0.3 MG/DL (0.1-1.0); BLOOD UREA NITROGEN 9 MG/DL (7-18); BUN/CREATININE RATIO 12.9 (6.6-38.0); CALCIUM 8.4 MG/DL (8.5-10.1); CHLORIDE 93 MMOL/L (99-107); ETHANOL 0.252 GM/DL (0.0-0.010); LIPASE < 50 U/L (73-393); SODIUM 128 MMOL/L (135-145); TOTAL CARBON DIOXIDE 23.1 MMOL/L (24-32); TOTAL PROTEIN 6.6 G/DL (6.4-8.2); eGFR > 90 ML/MIN
[2020-02-08 10:11] LABS: GLUCOSE 452 MG/DL (70-104)
[2020-02-08 10:14] LABS: POTASSIUM 3.6 MMOL/L (3.5-5.1)
[2020-02-08 10:22] LABS: ALANINE AMINOTRANSFERASE 44 U/L (12-78); ASPARTATE AMINO TRANSFERASE 63 U/L (10-37)
[2020-02-08 10:25] LABS: HCG SERUM QL NEGATIVE
[2020-02-08] MEDS ORDERED: insulin regular, human U-100 3ml vial - multi-dose SQ ONE (10:35)
[2020-02-08] MEDS ORDERED: LANTUS SQ (10:36)
[2020-02-08] MEDS ORDERED: INSU100V30 SQ (10:36)
[2020-02-08 11:04] VITALS: BP 103/74
== END 2020-02-08 11:06 | disposition home or self-care (01) ==
LOC: ER 08:26
DX: R73.9 Hyperglycemia, unspecified (principal); R11.10 Vomiting, unspecified; R53.1 Weakness; F10.920 Alcohol use, unspecified with intoxication, uncomplicated; I10 Essential (primary) hypertension; J45.909 Unspecified asthma, uncomplicated; K21.9 Gastro-esophageal reflux disease without esophagitis; F32.9 Major depressive disorder, single episode, unspecified; F17.200 Nicotine dependence, unspecified, uncomplicated; F12.90 Cannabis use, unspecified, uncomplicated; Z86.69 Personal history of other diseases of the nervous system and sense organs; Z72.89 Other problems related to lifestyle; Z98.51 Tubal ligation status; Z98.890 Other specified postprocedural states; Z88.5 Allergy status to narcotic agent; Z88.0 Allergy status to penicillin; Z79.4 Long term (current) use of insulin; Z79.899 Other long term (current) drug therapy; Y90.0 Blood alcohol level of less than 20 mg/100 ml
CPT/HCPCS: 36415; 80053; 80320; 81001; 82140; 82948; 83690; 84703; 85025; 87077; 87088; 87186; 96361; 96372; 96374; 96375; 99284; C9113; J2405; J7030; J1815